=== PATIENT | male | born 1995 | race Caucasian/White ===

== ENCOUNTER 2023-05-25 06:35 | Day surgery (SDC) | payer MEDICAID ==
[~2023-05-25] VITALS: Ht 172.7 cm; Wt 97.5 kg
[2023-05-25] MEDS ORDERED: DIPHENHYDRAMINE INJ 50 MG/ML VIAL ONE (07:52)
[2023-05-25] MEDS ORDERED: MIDAZOLAM HCL 5 MG/5 ML VIAL ONE ×2 (07:53→08:05)
[2023-05-25] MEDS ORDERED: MEPERIDINE 100 MG INJ. 100 MG/ML VIAL ONE (07:53)
[2023-05-25] MEDS ORDERED: VIT D (09:30)
[2023-05-25] MEDS ORDERED: LISI20TA30 PO (09:30)
[2023-05-25] MEDS ORDERED: MULT-1117 PO (09:30)
[2023-05-25 09:31] VITALS: O2SAT 100
[2023-05-25 10:07] VITALS: BP_SYST 138; PULSE 92; RESP 16
== END 2023-05-25 09:40 | disposition home or self-care (01) ==
LOC: SDS 06:35 → SMU 06:38 → SDS 09:40
PROVIDERS: ATTEND Internal Medicine
DX: R10.13 Epigastric pain (principal); K21.00 Gastro-esophageal reflux disease with esophagitis, without bleeding; K29.50 Unspecified chronic gastritis without bleeding; I10 Essential (primary) hypertension; F41.9 Anxiety disorder, unspecified; Z79.899 Other long term (current) drug therapy
CPT/HCPCS: 43239; 99152; 87081; 36415; 88305; 88312; 88313; G0378; J1200; J2250; J2175